=== PATIENT | female | born 1960 | race Caucasian/White ===

== ENCOUNTER → 2024-05-31 | Outpatient (CLI) | payer MEDICARE ==
[2024-05-31 09:13] LABS: African American GFR (CKD) >90 (>60 ml/min/1.73 sqM); Blood Urea Nitrogen 15 mg/dL (7-17); Non-African American GFR(CKD) >90 (>60 ml/min/1.73 sqM)
--- NOTE | 2024-05-31 10:39 | CT ---
EXAMINATION TYPE: CT abdomen pelvis wo/w con CT DLP: 1645.1 mGycm, Automated exposure control for dose reduction was used. DATE OF EXAM: 05/31/2024 10:30 AM COMPARISON: None CLINICAL INDICATION:Female, 64 years old with history of R10.32 LLQ PAIN; LLQ pain TECHNIQUE: Standard CT of the abdomen and pelvis before and after the uneventful administration of 100 cc of Isovue-300 intravenously. Oral contrast was administered. Coronal and sagittal reformats we re performed. FINDINGS: LOWER CHEST: Mild linear atelectasis within the lingula and dependent subsegmental atelectasis within the right lower lobe. ABDOMEN LIVER: Unremarkable GALLBLADDER AND BILE DUCTS: Lithiasis. No biliary ductal dilatation. PANCREAS: Unremarkable. SPLEEN: Unremarkable. ADRENAL GLANDS: Unremarkable. KIDNEYS AND URETERS: No evidence of hydronephrosis or renal calculus. The kidneys enhance symmetrical ly. Prominent bilateral extrarenal pelvises with right greater than left. The chest is demonstrated w ithin both collecting systems on the delayed phase. PELVIS BLADDER: Incompletely distended but grossly unremarkable. REPRODUCTIVE: Unremarkable. ABDOMEN & PELVIS STOMACH AND BOWEL: Tiny hiatal hernia, duodenum is unremarkable. Enteric contrast reaches the transve rse colon. No focal bowel wall thickening. The appendix is not definitively visualized however no sig nificant plantar changes of the right lower quadrant. There is focal subtle short segment inflammator y stranding changes around the descending colon (series 6, image 47). No surrounding fluid collection . No evidence of bowel obstruction. PERITONEUM: No evidence of pneumoperitoneum or free fluid. VASCULATURE: No evidence of aortic aneurysm. Pelvic phleboliths. MUSCULOSKELETAL: No acute osseous abnormalities LYMPH NODES: No evidence for lymphadenopathy. SOFT TISSUE/ABDOMINAL WALL: Tiny fat filled hernia. IMPRESSION: Findings suggestive of mild colitis involving the descending colon with subtle surrounding fat strand ing. No pericolonic fluid collections. Likely from infectious/inflammatory etiology. [facility], , 05/31/2024 10:37 AM
== END | disposition home or self-care (01) ==
LOC: RADCTMAIN 08:13
PROVIDERS: ATTEND Internal Medicine
DX: R10.32 Left lower quadrant pain
CPT/HCPCS: 36415; 74178; 82565; 84520

== ENCOUNTER → 2024-08-04 | Outpatient (CLI) | payer MEDICARE ==
--- NOTE | 2024-08-04 15:39 | BD ---
EXAMINATION TYPE: Axial Bone Density DATE OF EXAM: 08/04/2024 CLINICAL HISTORY: 64 years old Female. ICD-10 CODE: M85.851 OTH DISRD OF BONE DENSITY AND STRUCTURE, R , Additional History: Height: 60.75 Weight: 173 FRAX RISK QUESTIONS: Family History (Parent hip fracture): no History of Fracture in Adulthood: no Secondary Osteoporosis: no RISK FACTORS HISTORY OF: Surgery to Spine/Hip(right/left)/Wrist (right/left): no MEDICATIONS: Thyroid Medications: yes Which medication: Levothyroxine How Lon+ years Osteoporosis Medications: no EXAM MEASUREMENTS: Bone mineral densitometry was performed using the [employer] System. Bone mineral density as measured about the Lumbar spine is: ----- L1-L4(G/cm2): 0.970 T Score Values are as follows: ----- L1: -2.2 ----- L2: -2.0 ----- L3: -1.3 ----- L4: -1.8 ----- L1-L4: -1.7 Z Score Values are as follows: ----- L1: -1.1 ----- L2: -0.8 ----- L3: -0.1 ----- L4: -0.6 ----- L1-L4: -0.6 Bone mineral density baseline Bone mineral density about the R hip (g/cm2): 1.017 Bone mineral density about the L hip (g/cm2): 1.012 T Score values are as follows: -----R Neck: -1.0 -----L Neck: -1.1 -----R Total: 0.1 -----L Total: 0.0 Z Score values are as follows: -----R Neck: 0.2 -----L Neck: 0.1 -----R Total: 1.0 -----L Total: 0.9 Bone mineral density baseline FRAX%s: The graph provided illustrates a 7.7% chance for a major osteoporotic fx and a 0.6% chance fo r the hips probability for fx in 10 years time. IMPRESSION: Osteopenia (T Score between -2.5 and -1). There is slightly increased risk of fracture and the patient may be considered for treatment. Re-Screen 2-5 years. NOTE: T-SCORE=SD OF THE YOUNG ADULT MEAN. [facility], , 08/04/2024 3:36 PM
== END | disposition home or self-care (01) ==
LOC: RADBDWWP 08:30
PROVIDERS: ATTEND Internal Medicine
DX: I34.0 Nonrheumatic mitral (valve) insufficiency (principal); M85.89 Other specified disorders of bone density and structure, multiple sites; I65.23 Occlusion and stenosis of bilateral carotid arteries
CPT/HCPCS: 77080

== ENCOUNTER → 2024-08-10 | Outpatient (CLI) | payer MEDICARE ==
--- NOTE | 2024-08-11 08:39 | US ---
EXAMINATION TYPE: US carotid duplex BILAT DATE OF EXAM: 08/10/2024 COMPARISON: NONE CLINICAL INDICATION: Female, 64 years old with history of I65.23 OCCLUSION AND STENOSIS OF BILATERAL CAROTID; Hx hyperlipidemia. Additional History: I65.- Occlusion/stenosis of specified precerebral artery, specified laterality TECHNIQUE: Grayscale, color Doppler and spectral Doppler evaluation of the bilateral carotid systems and vertebral arteries. Indirect Doppler criteria was utilized. FINDINGS: EXAM MEASUREMENTS: RIGHT: Peak Systolic Velocity (PSV) cm/sec ----- Right CCA: 84.2 ----- Right ICA: 118.5 ----- Right ECA: 137.7 ICA/CCA ratio: 1.4 RIGHT: End Diastole cm/sec ----- Right CCA: 25.9 ----- Right ICA: 30.5 ----- Right ECA: 13.6 LEFT: Peak Systolic Velocity (PSV) cm/sec ----- Left CCA: 95.2 ----- Left ICA: 116.0 ----- Left ECA: 161.4 ICA/CCA ratio: 1.2 LEFT: End Diastole cm/sec ----- Left CCA: 29.2 ----- Left ICA: 35.7 ----- Left ECA: 21.5 VERTEBRALS (direction of flow): Right Vertebral: Antegrade Left Vertebral: Antegrade Rhythm: Normal DISPLAY DECORATOR NOTES: *Elevated velocities within bilateral ECAs. Minimal plaque seen bilateral bulbs. Color Doppler imaging shows patency with blood flow throughout the carotid artery. IMPRESSION: 1. Atheromatous plaquing bilateral carotid bifurcations without significant flow-limiting stenosis ba sed on velocities. Criteria for Assigning % of Stenosis / Diameter reduction (Estimation based on the indirect measurements of the internal carotid artery velocities (ICA PSV). 1. Normal (no stenosis)=ICA PSV < 125 cm/s: ratio < 2.0: ICA EDV<40 cm/s. 2. Less than 50% stenosis=ICA PSV < 125 cm/s: ratio < 2.0: ICA EDV<40 cm/s. 3. 50 to 69% stenosis=ICA PSV of 125 to 230 cm/s: ration 2.0 ? 4.0: ICA EDV 40-100 cm/s. 4. Greater than 70% stenosis to near occlusion= ICA PSV > 230 cm/s: ratio > 4.0: ICA EDV > 100 cm/s. 5. Near occlusion= ICA PSV velocities may be low or undetectable: variable ratio and ICA EDV. 6. Total occlusion=unable to detect flow. [facility], , 08/11/2024 8:37 AM
== END | disposition home or self-care (01) ==
LOC: RADUSWWP 14:47
PROVIDERS: ATTEND Internal Medicine
DX: I65.23 Occlusion and stenosis of bilateral carotid arteries (principal); M85.851 Other specified disorders of bone density and structure, right thigh; I34.0 Nonrheumatic mitral (valve) insufficiency; E78.5 Hyperlipidemia, unspecified
CPT/HCPCS: 93880

== ENCOUNTER → 2024-09-01 | Outpatient (CLI) | payer MEDICARE ==
--- NOTE | 2024-09-01 13:20 | CA ---
Transthoracic Echo Report Name: Courtney Nina Age: 64 Gender: F : 1960 Exam Date: 09/01/2024 11:35 Exam Location: [facility] Ht (in): 62 Wt (lb): 175 Ordering Physician: Mao Osborne MD Attending/Referring Phys: Mao Osborne MD Learning Program Manager Jackeline Xiong RDCS Procedure CPT: Indications: mitral valve regurgitiation Cardiac Hx: Technical Quality: Fair Contrast 1: Total Dose (mL): Contrast 2: Total Dose (mL): MEASUREMENTS (Male / Female) Normal Values 2D ECHO LV Diastolic Diameter PLAX 3.9 cm 4.2 - 5.9 / 3.9 - 5.3 cm LV Systolic Diameter PLAX 2.5 cm IVS Diastolic Thickness 0.8 cm 0.6 - 1.0 / 0.6 - 0.9 cm LVPW Diastolic Thickness 1.0 cm 0.6 - 1.0 / 0.6 - 0.9 cm LV Relative Wall Thickness 0.5 LVOT Diameter 2.0 cm Aortic Root Diameter 2.9 cm LV Diastolic Volume MOD BP 82.1 cm??? 67 - 155 / 56 - 104 cm??? LV Systolic Volume MOD BP 31.6 cm??? 22 - 58 / 19 - 49 cm??? LV Ejection Fraction MOD BP 61.5 % >= 55 % LV Cardiac Index MOD BP 2157.2 cm???/min???m??? LV Diastolic Volume MOD 4C 81.8 cm??? LV Systolic Volume MOD 4C 30.5 cm??? LV Ejection Fraction MOD 4C 62.7 % LV Cardiac Index MOD 4C 2192.3 cm???/min???m??? LV Diastolic Length 4C 7.5 cm LV Systolic Length 4C 6.2 cm LV Diastolic Volume MOD 2C 81.8 cm??? LV Systolic Volume MOD 2C 32.4 cm??? LV Ejection Fraction MOD 2C 60.4 % LV Cardiac Index MOD 2C 2110.6 cm???/min???m??? LV Diastolic Length 2C 7.6 cm LV Systolic Length 2C 6.1 cm LA Volume 43.5 cm??? 18 - 58 / 22 - 52 cm??? LA Volume Index 22.9 cm???/m??? 16 - 28 cm???/m??? Ascending Aorta Diameter 3.5 cm DOPPLER AV Peak Velocity 154.5 cm/s AV Peak Gradient 9.6 mmHg AV Mean Velocity 113.2 cm/s AV Mean Gradient 5.5 mmHg AV Velocity Time Integral 32.4 cm LVOT Peak Velocity 139.4 cm/s LVOT Peak Gradient 7.8 mmHg LVOT Velocity Time Integral 26.9 cm LVOT Stroke Volume 83.9 cm??? LVOT Stroke Volume Index 46.5 ml/m??? LVOT Cardiac Index 3587.0 cm???/min???m??? AV Area Cont Eq vti 2.6 cm??? AV Area Cont Eq pk 2.8 cm??? MV Area PHT 3.7 cm??? Mitral E Point Velocity 59.4 cm/s Mitral A Point Velocity 73.6 cm/s Mitral E to A Ratio 0.8 MV Deceleration Time 204.6 ms TR Peak Velocity 219.8 cm/s TR Peak Gradient 19.3 mmHg Right Atrial Pressure 10.0 mmHg Pulmonary Artery Systolic Pressu 29.3 mmHg Right Ventricular Systolic Press 29.3 mmHg PV Peak Velocity 92.2 cm/s PV Peak Gradient 3.4 mmHg FINDINGS Left Ventricle Left ventricular ejection fraction is estimated at 60 %. Left ventricular cavity size normal. Left ventricular wall thickness normal. No obvious regional wall motion abnormalities. Right Ventricle Normal right ventricular size and function. Right ventricular systolic pressure within normal limits. Right Atrium Normal right atrial size. Left Atrium Normal left atrial size. Mitral Valve Structurally normal mitral valve. No evidence for mitral valve prolapse. No mitral stenosis. Trace mitral regurgitation. Aortic Valve Trileaflet aortic valve. No aortic valve stenosis or regurgitation. Tricuspid Valve Structurally normal tricuspid valve. No tricuspid stenosis. Mild tricuspid regurgitation. Pulmonic Valve Structurally normal pulmonic valve. No pulmonic stenosis. No pulmonic regurgitation. Pericardium No pericardial effusion. Aorta Normal size aortic root and proximal ascending aorta. CONCLUSIONS Normal biventricular systolic function No significant valvular abnormalities Normal pulmonary artery systolic pressure No pericardial effusion Previewed by: Dr. Apolinar Way MD (Electronically Signed) Final Date: 01 September 2024 13:19
== END | disposition home or self-care (01) ==
LOC: RADECHMAIN 11:24
PROVIDERS: ATTEND Internal Medicine
DX: I34.0 Nonrheumatic mitral (valve) insufficiency (principal); I65.23 Occlusion and stenosis of bilateral carotid arteries; I07.1 Rheumatic tricuspid insufficiency
CPT/HCPCS: 93306